=== PATIENT | male | born 2000 | race Caucasian/White ===

== ENCOUNTER 2025-10-26 16:50 | Emergency (ER) | payer SELFPAY ==
[~2025-10-26] VITALS: Ht 170.2 cm; Wt 68.0 kg
[2025-10-26 17:02] VITALS: O2SAT 100
[2025-10-26] MEDS ORDERED: CETI10TA6 MT (17:51)
[2025-10-26] MEDS ORDERED: SODI126M NS (17:51)
[2025-10-26] MEDS ORDERED: IBUP-1455 MT (17:51)
[2025-10-26] MEDS ORDERED: AMOX1TAB16 MT (17:51)
[2025-10-26] MEDS ORDERED: FLUT15.844 BOTHNSTRLS (17:51)
[2025-10-26 18:18] VITALS: BP 110/70; PULSE 80; RESP 15; TEMP 36.7; O2SAT 100
== END 2025-10-26 18:24 | disposition home or self-care (01) ==
LOC: ER 16:50
DX: J32.9 Chronic sinusitis, unspecified (principal); R04.0 Epistaxis; Z88.0 Allergy status to penicillin; Z88.6 Allergy status to analgesic agent
CPT/HCPCS: 99283